=== PATIENT | male | born 2000 | race Two or more races ===

== ENCOUNTER 2019-12-19 16:02 | Outpatient (CLI) | payer OTHER | END 2019-12-19 16:06 | disposition home or self-care (01) | LOC: LAB 16:02 | PROVIDERS: ATTEND General Practice | DX: Z20.828 Contact with and (suspected) exposure to other viral communicable diseases (principal); Z11.59 Encounter for screening for other viral diseases ==

== ENCOUNTER 2019-12-26 14:12 | Outpatient (CLI) | payer OTHER | END 2019-12-26 15:00 | disposition home or self-care (01) | LOC: LAB 14:12 | PROVIDERS: ATTEND General Practice | DX: Z20.828 Contact with and (suspected) exposure to other viral communicable diseases (principal); Z11.59 Encounter for screening for other viral diseases ==